=== PATIENT | male | born 1985 | race Caucasian/White ===

== ENCOUNTER 2022-10-15 08:29 | Emergency (ER) | payer OTHER, SELFPAY ==
[2022-10-15 08:43] VITALS: BP 155/98; PULSE 98; RESP 20; TEMP 36.3; O2SAT 94
--- NOTE | 2022-10-15 09:51 | CRLHL7_ITS ---
For Patients: As a result of the Century Cures Act, medical imaging exams and procedure reports are released immediately into your electronic medical record. You may view this report before your referring provider. If you have questions, please contact your health care provider. INDICATION: Wheezing COMPARISON: None TECHNIQUE: PA and lateral views of the chest were acquired FINDINGS: TUBES AND LINES: None. HEART AND MEDIASTINUM: The heart size is normal. The mediastinal contour appears normal for patient age. LUNGS AND PLEURAL SPACES: The lungs appear normal.The pleural spaces are unremarkable. OSSEOUS STRUCTURES: Scoliosis. IMPRESSION: No evidence of active pulmonary disease. Scoliosis. Dictated by Steven Young MD @ 10/15/2022 11:16:23 AM (Electronically Signed)
--- NOTE | 2022-10-15 09:52 | ED.GENADULT ---
HPI - General Adult General Chief complaint: Shortness of Breath/Dyspnea Stated complaint: Breathing difficulty/wheezing Time Seen by Provider: 10/15/22 09:40 History of Present Illness HPI narrative: This 37-year-old male comes in reporting shortness of breath with wheezing. Three days ago he had some nasal congestion and developed a cough. He now has shortness of breath and states that last night he grew concerned about his ability to breathe. He had similar symptoms but less severe a couple months ago. He is a smoker and smokes about a pack a day. He does not report any fevers. Related Data Home Medications Medication Instructions Recorded Confirmed No Known Home Medications 10/15/22 10/15/22 Previous Rx's Medication Instructions Recorded albuterol sulfate 90 mcg/actuation 2 inh inhalation Q4-6H PRN #1 ea 10/15/22 breath activated powder inhaler methylprednisolone 4 mg tablets in See Rx Instructions PO .COMPLEX 10/15/22 a dose pack (Medrol (Herb)) #21 ea Allergies Allergy/AdvReac Type Severity Reaction Status Date / Time No Known Drug Allergies Allergy Verified 10/15/22 08:47 Review of Systems Status of ROS: Reports: 10 or more systems reviewed and unremarkable except as noted in History and below Narrative: Constitutional: No fevers, no weight gain or loss. Eyes: No discharge. No vision changes. HENT: No congestion, no sore throat, no ear pain. Cardiovascular: No chest pain, no palpitations. Respiratory: Wheezing and coughing with shortness of breath. Gastrointestinal: No abdominal pain, no vomiting, no diarrhea. Genitourinary: No dysuria, no hematuria. Musculoskeletal: Normal range of motion. Skin: No rashes, no pruritis. Neurological: No dizziness, weakness, sensory change, speech change. Endo/Heme/Allergies: No bruising or bleeding. No polydipsia. Pysch: no suicidality, no anxiety, no insomnia. All other systems reviewed and are negative. PFSH PFSH Social History Smoking Status: Current every day smoker What tobacco products do you use: cigarettes Do you use any of these nicotine containing products: None Second hand tobacco smoke exposure: No How often do you have a drink containing alcohol: monthly or less AUDIT-C Alcohol total score: 1 Non-prescribed substance use: denies use Exam Narrative: Exam Narrative: Constitutional: Well-developed, well-nourished, no acute distress. HEENT: Normocephalic, atraumatic. Neck: Normal range of motion. Nontender. Supple. Heart: Regular. No murmurs. Normal rate. Intact distal pulses. Lungs: Bilateral inspiratory and expiratory wheezes. No use of accessory muscles for breathing. Abdomen: Normal bowel sounds. Nontender. No rebound tenderness. Genitalia: Deferred. Back: No midline tenderness. Normal range of motion. Extremities: Normal range of motion. No injury. Skin: Intact. No rash. Warm. No erythema or pallor. Neurologic: No altered sensation. No weakness. Alert and oriented. Psychiatric: No suicidality. No anxiety or depression. No insomnia. Nursing notes and vitals signs are reviewed. Const: Vital Signs, click to edit/add: Vital Signs - 24 hr 10/15/22 08:43 Temperature 97.4 F L Pulse Rate [Right Pulse Oximeter] 98 Respiratory Rate 20 Blood Pressure [Ri ght Upper Arm] 155/98 H Pulse Oximetry 94 Oxygen Delivery Me thod Room Air Course Vital Signs Vital signs: Initial Vital Signs Temperature 97.4 F L 10/15/22 08:43 Temperature Source Temporal Artery Scan 10/15/22 08:43 Pulse Rate 98 10/15/22 08:43 Pulse Rhythm 10/15/22 08:43 Pulse Strength 3+ Normal 10/15/22 08:43 Respiratory Rate 20 10/15/22 08:43 Blood Pressure 155/98 H 10/15/22 08:43 Blood Pressure Mean 117 10/15/22 08:43 Blood Pressure Position Sitting 10/15/22 08:43 Pulse Oximetry 94 10/15/22 08:43 Oxygen Delivery Method 10/15/22 08:43 Vital Signs Temperature 97.4 F L 10/15/22 08:43 Pulse Rate 98 10/15/22 08:43 Respiratory Rate 20 10/15/22 08:43 Blood Pressure 155/98 H 10/15/22 08:43 Pulse Oximetry 94 10/15/22 08:43 Oxygen Delivery Method 10/15/22 08:43 Temperature 97.4 F L 10/15/22 08:43 Pulse Rate 98 10/15/22 08:43 Respiratory Rate 20 10/15/22 08:43 Blood Pressure 155/98 H 10/15/22 08:43 Pulse Oximetry 94 10/15/22 08:43 Oxygen Delivery Method 10/15/22 08:43 Medical Decision Making MDM Narrative Medical decision making narrative: This patient comes in with shortness of breath and bilateral inspiratory and expiratory wheezing. He is a smoker. He also began to have nasal congestion 2 or 3 days ago and developed into an upper respiratory illness triggering these symptoms. He is maintaining sufficient oximetry and not using accessory muscles for breathing. He did receive a DuoNeb treatment and an oral dose of dexamethasone 10 mg. This brought complete resolution of his symptoms. He no longer has any wheezing and feels that he can breathe easier. I did advise him to stop smoking. It appears that his asthma symptoms are intermittent and not persistent. Imaging Data Chest x-ray: Radiologist's impression: No evidence of active pulmonary disease. Scoliosis. Discharge Plan Discharge Clinical Impression: Asthma with acute exacerbation Patient Disposition: Home, Self-Care Condition: Improved Additional Instructions: Use medications as needed and indicated. Smoking cessation is advised. Follow up with MD or return if worsening symptoms happen. Prescriptions: New albuterol sulfate 90 mcg/actuation aerosol [facility] breath activated 2 inh inhalation Q4-6H PRNQty: 1 0RF methylprednisolone [Medrol (Herb)] 4 mg tablets,dose pack See Rx Instructions .ROUTE .COMPLEX Qty: 21 0RF Rx Instructions: orally per package directions No Action No Known Home Medications Follow Up/Referrals: Provider,Not a Local [Primary Care Provider] - Stand Alone Forms: [employer] Info Instructions
[2022-10-15] MEDS: dexAMETHasone 10 MG/ML inj PO (10:14)
[2022-10-15] MEDS: IPRAT-ALBUT 0.5-2.5 MG/3 ML NEB 1 NEB IH (10:14)
== END 2022-10-15 11:34 | disposition home or self-care (01) ==
PROVIDERS: Emergency Provider Emergency Medicine Emergency Medical Services
DX: J45.901 Unspecified asthma with (acute) exacerbation (principal); F17.210 Nicotine dependence, cigarettes, uncomplicated
CPT/HCPCS: 71046; 94640; 99284; J1100